=== PATIENT | male | born 1995 | race Caucasian/White ===

== ENCOUNTER 2016-11-13 02:22 | Emergency (ER) | payer BC, OTHER ==
[2016-11-13 02:54] LABS: HEMOGLOBIN 15.9 gm/dl (14.0-17.5); RED BLOOD COUNT 5.15 M/UL (4.20-5.50); WHITE BLOOD COUNT 7.4 K/UL (4.5-11.0)
[2016-11-13 03:18] LABS: BUN/CREATININE RATIO 15 (0-10)
== END 2016-11-13 05:27 | disposition home or self-care (01) ==
LOC: ER1 02:22
PROVIDERS: Family Medicine
DX: R07.9 Chest pain, unspecified (principal); R20.0 Anesthesia of skin; Z88.0 Allergy status to penicillin
CPT/HCPCS: 36415; 71020; 80053; 82550; 82553; 83874; 84484; 85025; 85379; 93005; 99285

== ENCOUNTER 2021-02-23 04:12 | Emergency (ER) | payer OTHER ==
[~2021-02-23 04:12] MED LIST: BENTYL 20MG TAB20 MG PO; CYCLOBENZAPRINE10 MG PO; FLEXERIL 10 MG10 MG PO; MEDROL4 MG PO; TESSALON PERLE100 MG PO; ZOFRAN ODT 4 MG4 MG SL
[2021-02-23 05:23] LABS: HEMOGLOBIN 16.8 gm/dl (14.0-17.5); RED BLOOD COUNT 5.29 M/UL (4.20-5.50); WHITE BLOOD COUNT 7.4 K/UL (4.5-11.0)
[2021-02-23 05:46] LABS: BUN/CREATININE RATIO 16 (0-10)
[2021-02-23] MEDS ORDERED: ZOFRAN 4 MG TAB4 MG PO (07:12)
== END 2021-02-23 07:40 | disposition home or self-care (01) ==
LOC: ER1 04:12
PROVIDERS: Student in an Organized Health Care Education/Training Program
DX: R05 Cough (principal); R50.9 Fever, unspecified; Z90.49 Acquired absence of other specified parts of digestive tract; Z88.0 Allergy status to penicillin; Z91.040 Latex allergy status; F17.200 Nicotine dependence, unspecified, uncomplicated; Z20.822 Contact with and (suspected) exposure to COVID-19
CPT/HCPCS: 0240U; 71045; 80053; 81001; 85025; 87081; 87880; 99283